=== PATIENT | male | born 1960 ===

== ENCOUNTER 2017-01-25 11:39 | Outpatient (CLI) | payer OTHER ==
[2017-01-25 12:16] LABS: BASOPHILS # (AUTO) 0.1 K/uL (0.0-8.0); BASOPHILS % (AUTO) 0.8 % (0.0-2.0); EOSINOPHILS # (AUTO) 0.1 K/uL (0.0-0.7); EOSINOPHILS % (AUTO) 1.4 % (0.0-7.0); HEMATOCRIT 47.1 % (40-50); HEMOGLOBIN 15.6 G/DL (14.0-18.0); LYMPHOCYTES # (AUTO) 2.3 K/UL (0.8-4.8); LYMPHOCYTES % (AUTO) 26.7 % (20.5-51.5); MEAN CORPUSCULAR HEMOGLOBIN 28.6 UUG (27.0-31.0); MEAN CORPUSCULAR HGB CONC 33 g/dL (32.0-37.0); MEAN CORPUSCULAR VOLUME 86.5 FL (82.0-92.0); MONOCYTES # (AUTO) 0.6 K/UL (0.1-1.30); MONOCYTES % (AUTO) 6.8 % (0.0-11.0); NEUTROPHILS # (AUTO) 5.6 K/UL (1.8-8.9); NEUTROPHILS % (AUTO) 64.3 % (38.5-71.5); PLATELET COUNT (AUTO) 202 K/UL (150-450); RED BLOOD CELL COUNT(AUTO) 5.44 MIL/UL (4.7-6.1); WHITE BLOOD COUNT (AUTO) 8.7 K/UL (4.0-11.2)
[2017-01-25 12:18] LABS: *BILIRUBIN,URIN NEGATIVE (NEGATIVE); *BLOOD, URINE NEGATIVE (NEGATIVE); *CLARITY,URINE CLEAR (CLEAR); *COLOR,URINE DARK YELLOW (YELLOW); *KETONES,URINE NEGATIVE (NEGATIVE); *PROTEIN,URINE NEGATIVE (NEGATIVE); *UROBILINOGEN,URINE 0.2 E.U./dl (NORMAL); LEUKOCYTE ESTERASE ,URINE NEGATIVE (NEGATIVE); NITRITE, URINE NEGATIVE (NEGATIVE); PH,URINE 5.5 (5.0-8.0)
[2017-01-25 12:29] LABS: BILIRUBIN,TOTAL 0.5 mg/dL (0.2-1.0); CREATININE 1.1 mg/dL (0.6-1.3); POTASSIUM 3.6 mmol/L (3.5-5.1); TOTAL PROTEIN, SERUM 7.5 g/dL (6.4-8.2); UGLUCOSE NEGATIVE (NEGATIVE)
[2017-01-25 12:30] LABS: BACTERIA,URINE NONE SEEN /HPF (NONE SEEN); MUCUS,URINE MODERATE /LPF (0-FEW); RBC,URINE 0-3 /HPF (0-3); SQUAMOUS EPITHELIAL CELL,UR FEW /HPF (NONE SEEN)
== END 2017-01-25 23:59 | disposition home or self-care (01) ==
LOC: LAB 11:39
PROVIDERS: ATTEND Orthopaedic Surgery
DX: Z01.818 Encounter for other preprocedural examination (principal); I45.10 Unspecified right bundle-branch block; E11.9 Type 2 diabetes mellitus without complications; S83.207A Unspecified tear of unspecified meniscus, current injury, left knee, initial encounter; X58.XXXA Exposure to other specified factors, initial encounter; Y93.89 Activity, other specified; Y92.89 Other specified places as the place of occurrence of the external cause; Y99.8 Other external cause status
CPT/HCPCS: 36415; 71010; 85025; 85730; 93005

== ENCOUNTER 2017-01-27 06:06 | Day surgery (SDC) | payer OTHER ==
[2017-01-27] MEDS ORDERED: CEFAZOLIN 1 G VIAL MC ONE (06:07)
[2017-01-27] MEDS ORDERED: ONDANSETRON 4 MG/2 ML VIAL IV ONE (06:07)
[2017-01-27] MEDS ORDERED: PROPOFOL 200 MG/20 ML BOTTLE IV ONE (06:07)
[2017-01-27] MEDS ORDERED: LABETALOL HCL 100 MG/20 ML VIAL MC ONE (06:07)
[2017-01-27] MEDS ORDERED: LIDOCAINE-MPF 2% 5 ML VIAL MC ONE (06:07)
[2017-01-27] MEDS ORDERED: MORPHINE SULFATE PF 10 MG/10 ML AMPUL IV ONE (07:11)
[2017-01-27] MEDS ORDERED: BUPIVACAINE/EPI PF 0.25% 30 ML VIAL ONE (07:12)
[2017-01-27] MEDS ORDERED: BUPIVACAINE 0.25% 30 ML VIAL ONE (07:12)
[2017-01-27] MEDS ORDERED: METOCLOPRAMIDE HCL 10 MG/2 ML VIAL ONE (07:57)
[2017-01-27] MEDS ORDERED: MIDAZOLAM HCL 2 MG/2 ML VIAL ONE (07:57)
[2017-01-27] MEDS ORDERED: HYDROMORPHONE 2 MG/1 ML DISP.SYRIN ONE ×2 (07:57→10:36)
[2017-01-27] MEDS ORDERED: SUCCINYLCHOLINE CHLORIDE 200 MG/10 ML VIAL ONE (07:58)
[2017-01-27] MEDS ORDERED: ROCURONIUM BROMIDE 50 MG/5 ML VIAL ONE (07:58)
[2017-01-27] MEDS ORDERED: ONDANSETRON 4 MG/2 ML VIAL ONE (10:37)
[2017-01-27] MEDS ORDERED: HYDROCODONE/APAP 5-325MG TABLET ONE (10:56)
== END 2017-01-27 11:35 | disposition home or self-care (01) ==
LOC: DS 06:06
PROVIDERS: ATTEND Orthopaedic Surgery
DX: M23.204 Derangement of unspecified medial meniscus due to old tear or injury, left knee (principal); E11.9 Type 2 diabetes mellitus without complications; I45.10 Unspecified right bundle-branch block; M22.42 Chondromalacia patellae, left knee; M65.862 Other synovitis and tenosynovitis, left lower leg; E66.9 Obesity, unspecified
CPT/HCPCS: 29881; 82962; J0330; J0690; J1170 ×2; J2250; J2274; J2405 ×2; J2765; J3490 ×5; J7030

== ENCOUNTER 2017-01-29 20:28 | Emergency (ER) | payer OTHER ==
[~2017-01-29] VITALS: Ht 172.7 cm; Wt 87.1 kg
[2017-01-29] MEDS ORDERED: HYDROCODONE/ACETAMINOPHEN 5-32 (21:12)
--- NOTE | 2017-01-29 21:30 | NUR ---
Pt ambulated to room with use of crutches. Pt had left knee surgery on mon (01/27) and c/o increased pain and swelling. Pt has pos CMS to BLE. Surgery wrap released at which pt stated it immediately helped with some of the discomfort. Swelling and warmth noted to L. knee. No redness, no drainage noted. Pt resting in position of comfort for self, awaiting further eval.
[2017-01-29 22:26] LABS: BASOPHILS # (AUTO) 0.1 K/uL (0.0-8.0); BASOPHILS % (AUTO) 0.9 % (0.0-2.0); EOSINOPHILS # (AUTO) 0.2 K/uL (0.0-0.7); EOSINOPHILS % (AUTO) 1.6 % (0.0-7.0); HEMATOCRIT 48.6 % (40-50); LYMPHOCYTES # (AUTO) 2.7 K/UL (0.8-4.8); LYMPHOCYTES % (AUTO) 25.7 % (20.5-51.5); MEAN CORPUSCULAR HEMOGLOBIN 28.5 UUG (27.0-31.0); MEAN CORPUSCULAR HGB CONC 33 g/dL (32.0-37.0); MEAN CORPUSCULAR VOLUME 86.9 FL (82.0-92.0); MONOCYTES # (AUTO) 0.8 K/UL (0.1-1.30); MONOCYTES % (AUTO) 7.5 % (0.0-11.0); NEUTROPHILS # (AUTO) 6.6 K/UL (1.8-8.9); NEUTROPHILS % (AUTO) 64.3 % (38.5-71.5); PLATELET COUNT (AUTO) 193 K/UL (150-450); WHITE BLOOD COUNT (AUTO) 10.4 K/UL (4.0-11.2)
[2017-01-29 22:41] LABS: BILIRUBIN,DIRECT 0.1 mg/dL (0.0-0.2); BILIRUBIN,TOTAL 0.5 mg/dL (0.2-1.0); CREATININE 0.9 mg/dL (0.6-1.3); POTASSIUM 3.8 mmol/L (3.5-5.1); TOTAL PROTEIN, SERUM 7.8 g/dL (6.4-8.2)
--- NOTE | 2017-01-29 22:44 | NUR ---
Pt resting in position of comfort for self. No complaints at this time. Waiting for u/s. Family at bedside.
--- NOTE | 2017-01-29 23:22 | NUR ---
Dr. Topete aware of pt's blood pressure. Pt stable for discharge per Dr. Topete. L. Knee re-dressed, drsg D&I, IV dc'd, catheter intact, drsg applied. No problems noted to site. Pt and family given ACI. Both verbalized understanding of dc instructions. Pt ambulated out of er with steady gait using crutches.
[2017-01-29 23:24] VITALS: BP 153/105
== END 2017-01-29 23:25 | disposition home or self-care (01) ==
LOC: ER 20:33
DX: G89.18 Other acute postprocedural pain (principal); M25.562 Pain in left knee
CPT/HCPCS: 36415; 71010; 80048; 80076; 84484; 85025; 85730; 93005; 93971; 99285; A4663; 70030-TC